=== PATIENT | female | born 1980 | race Two or more races ===

== ENCOUNTER 2017-12-25 12:55 | Outpatient (CLI) | payer BC | END 2017-12-25 23:59 | disposition home or self-care (01) | LOC: WOU 12:55 | PROVIDERS: ATTEND Podiatrist Foot & Ankle Surgery | DX: E10.621 Type 1 diabetes mellitus with foot ulcer (principal); L97.412 Non-pressure chronic ulcer of right heel and midfoot with fat layer exposed; E10.610 Type 1 diabetes mellitus with diabetic neuropathic arthropathy; Z79.4 Long term (current) use of insulin; Z88.0 Allergy status to penicillin; Z88.2 Allergy status to sulfonamides; Z91.018 Allergy to other foods; R60.0 Localized edema; L03.115 Cellulitis of right lower limb | CPT/HCPCS: 87070; 99205; A6402; Z7610; 87186-TC; G0463 ==

== ENCOUNTER 2017-12-30 07:47 | Outpatient (CLI) | payer BC | END 2017-12-30 23:59 | disposition home or self-care (01) | LOC: RAD 07:47 | PROVIDERS: ATTEND Podiatrist Foot & Ankle Surgery | DX: S92.354A Nondisplaced fracture of fifth metatarsal bone, right foot, initial encounter for closed fracture (principal); Q66.89 Other specified congenital deformities of feet; X58.XXXA Exposure to other specified factors, initial encounter; Y93.89 Activity, other specified; Y92.89 Other specified places as the place of occurrence of the external cause; Y99.8 Other external cause status | CPT/HCPCS: 73610-TC; 73630-TC; 73650-TC ==

== ENCOUNTER 2018-01-03 11:37 | Outpatient (CLI) | payer BC | END 2018-01-03 23:59 | disposition home or self-care (01) | LOC: WOU 11:37 | PROVIDERS: ATTEND Podiatrist Foot & Ankle Surgery | DX: E10.621 Type 1 diabetes mellitus with foot ulcer (principal); L97.412 Non-pressure chronic ulcer of right heel and midfoot with fat layer exposed; E10.42 Type 1 diabetes mellitus with diabetic polyneuropathy; E10.610 Type 1 diabetes mellitus with diabetic neuropathic arthropathy; M84.474A Pathological fracture, right foot, initial encounter for fracture; Z79.4 Long term (current) use of insulin; Z88.0 Allergy status to penicillin; Z88.2 Allergy status to sulfonamides; Z91.018 Allergy to other foods; M19.071 Primary osteoarthritis, right ankle and foot; M21.6X1 Other acquired deformities of right foot | CPT/HCPCS: 11042; A6402; Z7610 ==

== ENCOUNTER 2018-02-06 13:41 | Outpatient (CLI) | payer BC | END 2018-02-06 23:59 | disposition home or self-care (01) | LOC: RAD 13:41 | PROVIDERS: ATTEND Podiatrist Foot & Ankle Surgery | DX: M21.41 Flat foot [pes planus] (acquired), right foot (principal); Q66.51 Congenital pes planus, right foot; S92.351A Displaced fracture of fifth metatarsal bone, right foot, initial encounter for closed fracture; X58.XXXA Exposure to other specified factors, initial encounter; Y93.89 Activity, other specified; Y92.89 Other specified places as the place of occurrence of the external cause; Y99.8 Other external cause status | CPT/HCPCS: 73610-TC; 73630-TC ==

== ENCOUNTER 2018-02-14 07:50 | Outpatient (CLI) | payer BC | END 2018-02-14 23:59 | disposition home or self-care (01) | LOC: WOU 07:50 | PROVIDERS: ATTEND Podiatrist Foot & Ankle Surgery | DX: E10.621 Type 1 diabetes mellitus with foot ulcer (principal); E10.610 Type 1 diabetes mellitus with diabetic neuropathic arthropathy; L97.412 Non-pressure chronic ulcer of right heel and midfoot with fat layer exposed; M84.474K Pathological fracture, right foot, subsequent encounter for fracture with nonunion; Z88.0 Allergy status to penicillin; Z88.2 Allergy status to sulfonamides; Z91.018 Allergy to other foods; M21.6X1 Other acquired deformities of right foot | CPT/HCPCS: 11042; 87070; 87077; 87186; A6402; Z7610 ==